=== PATIENT | female | born 1985 | race Two or more races ===

== ENCOUNTER 2024-06-10 09:47 | Emergency (ER) | payer MEDICAID, SELFPAY ==
[2024-06-10 10:02] VITALS: BP 148/94; PULSE 120; RESP 18; TEMP 37.2; O2SAT 97; BMI 34.4
[2024-06-10] MEDS: ACETAMINOPHEN 500 MG TABLET 1000 MG PO (10:54)
[2024-06-10] MEDS: ONDANSETRON ODT 4 MG TABRAP PO (10:55)
--- NOTE | 2024-06-10 11:30 | PD.EDNV ---
Nausea/Vomit./Diarrhea-RME/HPI General Chief complaint: Nausea/Vomiting/Diarrhea Stated complaint: n/v/d since last pm Time Seen by Provider: 06/10/24 09:51 Arrival date/time: 06/10/24 09:47 38-year-old female presents emergency department complains of nausea vomiting and diarrhea which began late last night there are no other associated symptoms or aggravating factors no other modifying factors, patient denies taking medication before coming ER today Limitations: no limitations Related Data Home Medications ?Medication ?Instructions ?Recorded ?Confirmed aspirin 81 mg capsule mg 04/28/23 [id number] 1 mg tab PO 04/28/23 04/28/23 tablet Previous Rx's ?Medication ?Instructions ?Recorded ibuprofen 800 mg tablet 800 mg PO TID PRN pain #30 tabs 06/10/24 loperamide 2 mg capsule (Imodium 2 mg PO Q6H PRN loose stool #14 06/10/24 A-D) caps ondansetron 4 mg disintegrating 4 mg PO Q8H PRN nausea and 06/10/24 tablet vomiting #10 tabs Allergies Allergy/AdvReac Type Severity Reaction Status Date / Time Fish Containing Products Allergy Intermediate Hives Verified 06/10/24 09:50 Review of Systems Review of Systems Systems Reviewed: All systems reviewed, normal except as documented Constitutional Constitutional: Reports system reviewed and no additional complaints, except as documented, Denies fever(s) and Denies headache(s) Eyes Eyes: Reports system reviewed and no additional complaints, except as documented and Denies blurry vision ENT Ears, Nose, Mouth, and Throat: Reports system reviewed and no additional complaints, except as documented, Denies headache(s), Denies nasal congestion and Denies nasal discharge Cardiovascular Cardiovascular: Reports system reviewed and no additional complaints, except as documented, Denies chest pain and Denies dyspnea Respiratory Respiratory: Reports system reviewed and no additional complaints, except as documented, Denies chest congestion, Denies cough and Denies dyspnea Gastrointestinal Gastrointestinal: Reports system reviewed and no additional complaints, except as documented, Denies abdominal pain, Reports loose stools, Reports nausea and Reports vomiting Integumentary/Breasts Skin/Breast: Reports system reviewed and no additional complaints, except as documented and Denies rash Neurologic Neurologic: Reports system reviewed and no additional complaints, except as documented, Reports as per HPI and Denies headache(s) Past Medical History Past Medical History NEUROLOGIC: Negative Neurological Disorders, Seizures or Paralysis CARDIAC: Positive Hypertension; Negative Cardiac Disorders or Congestive Heart Failure RESPIRATORY: Negative Chronic Obstructive Pulmonary Disease (COPD) or Asthma GASTROINTESTINAL: Negative Gastrointestinal Disorders GENITOURINARY: Negative Genitourinary Disorders or Renal Disease MUSCULOSKELETAL: Negative Musculoskeletal Disorders ENDOCRINE: Negative Endocrine Disorders, Diabetes Mellitus Type 1 or Diabetes Mellitus Type 2 HEMATOLOGIC: Negative Blood Disorders PSYCHO/SOCIAL: Negative Depression, Anxiety or Depression OTHER HISTORY: Negative Blood Transfusions or Anesthesia Reactions Surgical History SURGICAL: Negative Section Social History SMOKING STATUS: Never smoker ED Exam General Limitations: Present no limitations General appearance: Present alert and in no apparent distress Head Head exam: Present atraumatic, normocephalic and normal inspection Eye Eye exam: Present normal appearance, PERRL and EOMI; Absent conjunctival injection ENT ENT exam: Present normal exam, normal oropharynx and mucous membranes moist Neck Neck exam: Present normal inspection, full ROM and trachea midline Chest Chest inspection: Present normal inspection and symmetric chest wall rise Respiratory Respiratory exam: Present normal lung sounds bilaterally; Absent respiratory distress, wheezes, stridor or accessory muscle use Cardiovascular Cardiovascular exam: Present regular rate, normal rhythm and normal heart sounds Abdominal Exam Abdominal exam: Present soft and normal bowel sounds; Absent distention, tenderness, guarding, rebound or rigidity Extremities Exam Extremities exam: Present normal inspection and full ROM Back Exam Back exam: Present normal inspection and full ROM Neurological Exam Neurological exam: Present alert, oriented X3 and CN II-XII intact Psychiatric Psychiatric exam: Present normal affect and normal mood Skin Skin exam: Present warm, dry, intact and normal color Course Quality Measures none Orders Category Date Time Status Bedside Influenza A&B Antigen Test NOW Care 06/10/24 10:28 Completed Acetaminophen Tab [Tylenol ES Tab] Med 06/10/24 10:28 Discontinued 1,000 mg PO X1 ONE Ondansetron Odt [Zofran Odt] Med 06/10/24 10:28 Discontinued 4 mg PO X1 ONE Vital Signs Vital signs: Vital Signs Temperature 99.0 F 06/10/24 10:02 Pulse Rate 120 H 06/10/24 10:02 Respiratory Rate 18 06/10/24 10:02 Blood Pressure 148/94 H 06/10/24 10:02 Pulse Oximetry (%) 97 06/10/24 10:02 Oxygen Delivery Method Room Air 06/10/24 10:02 O2 saturation 97% room air within normal limits Nausea/Vomiting/Diarrhea MDM Narrative MDM Narrative:: 38-year-old female presents emergency department complains of nausea vomiting and diarrhea which began late last night there are no other associated symptoms or aggravating factors no other modifying factors, patient denies taking medication before coming ER today Patient reports multiple sick contacts at home symptoms consistent with viral illness patient will be treated symptomatically On exam patient well-appearing patient does not appear ill or toxic in no acute distress Patient discharged home in no distress to follow-up with primary care doctor in the next 24 to 48 hours and for any worsening symptoms to return to the ER immediately Patient data External records reviewed:: [facility] previous records Clinical information provided by:: patient Social determinants that could affect healthcare access:: none Patient has the following chronic illnesses:: None How is presenting disease/condition affected by chronic disease/condition?: no chronic disease Evaluation data The following diagnostics were reviewed and interpreted by me:: lab results Lab and/or radiology exams considered but not ordered:: Lab obtained Interpretation Summary: Reviewed by me Medications / Prescriptions Medications / Prescriptions considered but not ordered:: Given Medication administrations:: Medication Administration History Discontinued Medications Acetaminophen (Acetaminophen 500 Mg Tablet) 1,000 mg PO X1 ONE Stop: 06/10/24 10:29 Last Admin: 06/10/24 10:54 Dose: 1,000 mg Documented By: GÓMEZ Ondansetron HCl (Ondansetron Odt 4 Mg Tabrap) 4 mg PO X1 ONE; Protocol Stop: 06/10/24 10:29 Last Admin: 06/10/24 10:55 Dose: 4 mg Documented By: GÓMEZ Given Consultations Consultation(s) initiated? (list below): No Diagnosis Nausea Differential Diagnosis: traveler's diarrhea, food poisoning and gastroenteritis Most likely diagnosis given after review of the tests above:: Gastroenteritis Admission Indicated Admission indicated?: not indicated Admission Request Was there a request for admission?: No Disposition Plan Disposition Plan: Discharge Discharge Attestation Discharge Attestation: The patient and all family members were given an opportunity to ask questions and understood the discharge instructions. Discharge instructions specifically effects, indications for sooner follow up or return to the emergency department, and the expected course of current diagnosis. Patient condition: Stable Discharge Plan Plan Patient Disposition: HOME (Self Care) Disposition Comment: Stable Prescriptions/Referrals Prescriptions/Med Rec: New loperamide [Imodium A-D] 2 mg capsule 2 mg PO Q6H PRN (Reason: loose stool) Qty: 14 0RF ibuprofen 800 mg tablet 800 mg PO TID PRN (Reason: pain) Qty: 30 0RF ondansetron 4 mg tablet,disintegrating 4 mg PO Q8H PRN (Reason: nausea and vomiting) Qty: 10 0RF No Action 1 mg Tablet PO aspirin 81 mg Capsule Referrals: Lelia Perry FNP [Primary Care Provider] - 06/11/24 Problem List Clinical Impression: Nausea vomiting and diarrhea Patient/Caregiver Discharge Instructions Additional Instructions: Please follow up with your primary care doctor in the next 24-48hrs for any worsening symptoms return here immediately Print Language: Pashto Stand Alone Forms: Rena Award Info., Work/School Release, Patient Portal Info Letter GEMMA/SUSANNAH Supervising Physician GEMMA/SUSANNAH Supervising Physician: Dr [email or web address]
== END 2024-06-10 11:35 | disposition home or self-care (01) ==
PROVIDERS: Emergency Provider Emergency Medicine; PCP Registered Nurse Community Health
DX: R11.2 Nausea with vomiting, unspecified (principal); R19.7 Diarrhea, unspecified
CPT/HCPCS: 87400; 99283; Q0162; A9270